=== PATIENT | male | born 1975 | race Caucasian/White ===

== ENCOUNTER 2017-07-29 07:04 | Emergency (ER) | payer BC ==
[2017-07-29] MEDS ORDERED: SODIUM CHLORIDE 0.9% 500 ML IV STA (07:20)
[2017-07-29] MEDS ORDERED: KETOROLAC 30 MG/ML 1 ML VIAL IVP STA (07:20)
[2017-07-29] MEDS ORDERED: SODIUM CHLORIDE 0.9% 1,000 ML IV STA ×3 (07:20→08:14)
[2017-07-29] MEDS ORDERED: HYDROmorphone 1 MG/ML 1 ML SYRINGE IVP STA (07:20)
[2017-07-29] MEDS ORDERED: ONDANSETRON 4 MG/2 ML VIAL IVP STA (07:20)
[2017-07-29 07:38] LABS: Basophils % (A) 1 %; CH 30.3; CHCM 34.2; Eosinophils # (A) 0.2 k/uL (0-0.7); Eosinophils % (A) 3 %; HCT 46.8 % (39.0-53.0); HDW 2.94; Luc % (Auto) 3; Lymphocytes # (A) 1.7 k/uL (1.0-4.8); Lymphocytes % (A) 26 %; MCH 30.5 pg (25.0-35.0); MCHC 34.2 g/dL (31.0-37.0); Mean Platelet Volume 7.8; Monocytes # (A) 0.4 k/uL (0-1.0); Monocytes % (A) 6 %; Neutrophils # (A) 3.9 k/uL (1.3-7.7); Neutrophils % (A) 61 %; RBC 5.25 m/uL (4.30-5.90); RDW 13.4 % (11.5-15.5); WBC 6.3 k/uL (3.8-10.6); WBC (Perox) 6.01
--- NOTE | 2017-07-29 07:51 | ED ---
General Adult HPI - General Chief complaint: Abdominal Pain Stated complaint: Back & Abd Pain Time Seen by Provider: 07/29/17 07:19 Source: patient, RN notes reviewed, old records reviewed Mode of arrival: wheelchair Limitations: no limitations - History of Present Illness Initial comments: This is a 42-year-old male to the ER for evaluation today. This patient presents for evaluation of severe flank pain severe right-sided flank pain radiating to groin burning with urination. Patient denies history of kidney stones, states he had sudden onset of pain after waking up from bed this morning. Patient still complaining of severe pain at this time. Positive nausea, mildly diaphoretic. No recent fevers no recent trauma. - Related Data Home Medications Medication Instructions Recorded Confirmed Fluticasone/Salmeterol [Advair 1 puff INHALATION RT-BID 07/29/17 07/29/17 500-50 Diskus] Liraglutide [Victoza 3-[place]] 1.8 mg SQ DAILY 07/29/17 07/29/17 Allergies Allergy/AdvReac Type Severity Reaction Status Date / Time No Known Allergies Allergy Verified 07/29/17 07:58 Review of Systems ROS Statement: Those systems with pertinent positive or pertinent negative responses have been documented in the HPI. ROS Other: All systems not noted in ROS Statement are negative. Past Medical History Past Medical History: Asthma, Diabetes Mellitus Additional Past Medical History / Comment(s): gout History of Any Multi-Drug Resistant Organisms: None Reported Past Surgical History: No Surgical Hx Reported Past Psychological History: No Psychological Hx Reported Smoking Status: Never smoker Past Alcohol Use History: None Reported Past Drug Use History: None Reported General Exam Limitations: no limitations General appearance: alert, in no apparent distress Head exam: Present: atraumatic, normocephalic, normal inspection Eye exam: Present: normal appearance, PERRL, EOMI. Absent: scleral icterus, conjunctival injection, periorbital swelling ENT exam: Present: normal exam, mucous membranes moist Neck exam: Present: normal inspection. Absent: tenderness, meningismus, lymphadenopathy Respiratory exam: Present: normal lung sounds bilaterally. Absent: respiratory distress, wheezes, rales, rhonchi, stridor Cardiovascular Exam: Present: regular rate, normal rhythm, normal heart sounds. Absent: systolic murmur, diastolic murmur, rubs, gallop, clicks GI/Abdominal exam: Present: soft, normal bowel sounds. Absent: distended, tenderness, guarding, rebound, rigid Extremities exam: Present: normal inspection, full ROM, normal capillary refill. Absent: tenderness, pedal edema, joint swelling, calf tenderness Back exam: Present: normal inspection Neurological exam: Present: alert, oriented X3, CN II-XII intact Psychiatric exam: Present: normal affect, normal mood Skin exam: Present: warm, dry, intact, normal color. Absent: rash Course Vital Signs 07/29/17 07:12 Temperature 97.5 F L Pulse Rate 561 H Respiratory 22 Rate Blood Pressure 155/77 O2 Sat by Pulse 98 Oximetry - Reevaluation(s) Reevaluation #1: 07/29/17 07:51 Pain at this point is relieved, patient resting comfortably EKG Findings - EKG Comments: EKG Findings:: EKG shows sinus bradycardia rate of 55, [place] 152, QRS 100, QTC 432 Medical Decision Making - Medical Decision Making 42 LDR for evaluation of right flank pain rating to right groin, positive kidney stone, lab work otherwise normal, patient adequately hydrated here in the emergency room, patient can be discharged home. - Lab Data Result diagrams: 07/29/17 07:27 07/29/17 07:27 Lab Results 07/29/17 07/29/17 Range/Units 07:27 07:27 WBC 6.3 (3.8-10.6) k/uL RBC 5.25 (4.30-5.90) m/uL Hgb 16.0 (13.0-17.5) gm/dL Hct 46.8 (39.0-53.0) % MCV 89.0 (80.0-100.0) fL MCH 30.5 (25.0-35.0) pg MCHC 34.2 (31.0-37.0) g/dL RDW 13.4 (11.5-15.5) % Plt Count 210 (150-450) k/uL Neutrophils % 61 % Lymphocytes % 26 % Monocytes % 6 % Eosinophils % 3 % Basophils % 1 % Neutrophils # 3.9 (1.3-7.7) k/uL Lymphocytes # 1.7 (1.0-4.8) k/uL Monocytes # 0.4 (0-1.0) k/uL Eosinophils # 0.2 (0-0.7) k/uL Basophils # 0.0 (0-0.2) k/uL Sodium 139 (137-145) mmol/L Potassium 4.5 (3.5-5.1) mmol/L Chloride 103 (98-107) mmol/L Carbon Dioxide 26 (22-30) mmol/L Anion Gap 10 mmol/L BUN 16 (9-20) mg/dL Creatinine 1.32 H (0.66-1.25) mg/dL Est GFR (MDRD) Af Amer >60 (>60 ml/min/1.73 sqM) Est GFR (MDRD) Non-Af 60 (>60 ml/min/1.73 sqM) Glucose 268 H (74-99) mg/dL Calcium 9.1 (8.4-10.2) mg/dL Total Bilirubin 0.7 (0.2-1.3) mg/dL AST 41 (17-59) U/L ALT 55 (21-72) U/L Alkaline Phosphatase 77 (38-126) U/L Total Protein 7.7 (6.3-8.2) g/dL Albumin 3.9 (3.5-5.0) g/dL Amylase 38 (30-110) U/L Lipase 168 (23-300) U/L - Radiology Data Radiology results: report reviewed (CT abdomen and pelvis is positive for kidney stone right UVJ), image reviewed Disposition Clinical Impression: Abdominal pain, Right kidney stone Disposition: HOME SELF-CARE Condition: Good Instructions: Kidney Stones (ED) Referrals: Ruth Galvan MD [Primary Care Provider] - 1-2 days
[2017-07-29 07:52] LABS: ALT 55 U/L (21-72); AST 41 U/L (17-59); Alkaline Phosphatase 77 U/L (38-126); Amylase 38 U/L (30-110); Anion Gap 10 mmol/L; Blood Urea Nitrogen 16 mg/dL (9-20); Calcium 9.1 mg/dL (8.4-10.2); Carbon Dioxide 26 mmol/L (22-30); Chloride 103 mmol/L (98-107); Glucose 268 mg/dL (74-99); Non-African American GFR(MDRD) 60 (>60 ml/min/1.73 sqM); Potassium 4.5 mmol/L (3.5-5.1); Sodium 139 mmol/L (137-145); Total Bilirubin 0.7 mg/dL (0.2-1.3); Total Protein 7.7 g/dL (6.3-8.2)
--- NOTE | 2017-07-29 08:07 | CT ---
EXAMINATION TYPE: CT abdomen pelvis wo con DATE OF EXAM: 07/29/2017 HISTORY: rt flank pain x [address] DLP: 1215 mGycm. Automated Exposure Control for Dose Reduction was Utilized. TECHNIQUE: CT scan of the abdomen and pelvis is performed without oral or IV contrast. COMPARISON: NONE FINDINGS: Within the limitations of a non-contrast study, the following observations are made. LUNG BASES: No significant abnormality is appreciated. LIVER/GB: Liver is diffusely markedly low dense consistent with fatty infiltration.1 there is nonspec ific 1.1 cm round hyperdense focus on axial image 52. PANCREAS: No significant abnormality is seen. SPLEEN: No significant abnormality is seen. ADRENALS: No significant abnormality is seen. KIDNEYS: No renal stones or hydronephrosis is evident bilaterally. There is however 2 mm calculus at right UVJ on axial image 140 not causing significant right-sided hydronephrosis. Occasional pelvic ph lebolith is seen. There is subcentimeter exophytic lesion posteriorly lower pole level right kidney o n axial image 74 too small to further characterize but presumed benign. BOWEL: Cecum is wandering into the midline of the lower abdomen near axial image 106. Terminal ileum is felt within normal limits seen best on coronal image 36. Appendix is felt within normal limits see n best on coronal image 49. No suspicious small or large bowel dilatation is present. GENITAL ORGANS: No gross abnormality seen. LYMPH NODES: No greater than 1cm abdominal or pelvic lymph nodes are appreciated. OSSEOUS STRUCTURES: Spine is straightened on sagittal images. OTHER: No significant additional abnormality is seen. IMPRESSION: There is 2 mm calculus at right UVJ not causing significant right-sided hydronephrosis
[2017-07-29] MEDS ORDERED: HYDROmorphone 0.5 MG/0.5 ML SYRINGE IVP STA (08:16)
[2017-07-29 08:37] LABS: Appearance,Urine Clear (Clear); Bilirubin,Urine Negative (Negative); Glucose,Urine (UA) 3+ (Negative); Ketones,Urine Trace (Negative); Leukocyte Esterase,Urine Negative (Negative); Nitrite,Urine Negative (Negative); Protein,Urine Trace (Negative); Specific Gravity,Urine 1.024 (1.001-1.035); UA Billing (MACRO vs. MICRO) CHEM; Urobilinogen,Urine <2.0 mg/dL (<2.0)
[2017-07-29 09:32] VITALS: BP 130/74; PULSE 74; RESP 18; TEMP 98
== END 2017-07-29 09:33 | disposition home or self-care (01) ==
LOC: EC 07:04
DX: N20.2 Calculus of kidney with calculus of ureter (principal); R00.1 Bradycardia, unspecified; J45.909 Unspecified asthma, uncomplicated; E11.9 Type 2 diabetes mellitus without complications; Z79.4 Long term (current) use of insulin; Z79.51 Long term (current) use of inhaled steroids
CPT/HCPCS: 99285 ×2; 96374 ×2; 96375 ×3; 96376 ×2; 96361 ×3; 36415; 93005; 80053; 82150; 83690; 85025; 81003; 87086; 74176; J2405; J1885; J1170 ×2

== ENCOUNTER 2020-07-06 11:44 | Emergency (ER) | payer BC ==
--- NOTE | 2020-07-06 12:23 | ED ---
General Adult HPI - General Source: patient, RN notes reviewed, old records reviewed Mode of arrival: ambulatory Limitations: no limitations <Guanako Agrawal - Last Filed: 07/06/20 13:41> <Bernabe Raygoza - Last Filed: 07/06/20 13:48> - General Chief complaint: Headache Stated complaint: Headache Time Seen by Provider: 07/06/20 11:54 - History of Present Illness Initial comments: 45-year-old male patient presents to ED for evaluation of headaches patient reports that he has been having daily headaches for the last month. Reports left lobe of his brain. Denies any loss of consciousness. Denies any other acute complaints. Systemic: Pt denies fatigue, fever/chills, rash. Pt denies weakness, night sweats, weight loss. Neuro: Pt denies visual disturbances, syncope or pre-syncope. HEENT: Pt denies ocular discharge or irritation, otalgia, rhinorrhea, pharyngitis or notable lymphadenopathy. Cardiopulmonary: Pt denies chest pain, SOB, heart palpitations, dyspnea on exertion. Abdominal/GI: Pt denies abdominal pain, n/v/d. : Pt denies dysuria, burning w/ urination, frequency/urgency. Denies new onset urinary or bowel incontinence. MSK: Pt denies myalgia, loss of strength or function in extremities. Neuro: Pt denies new onset weakness, paresthesias. (Guanako Agrawal) - Related Data Home Medications Medication Instructions Recorded Confirmed Fluticasone/Salmeterol [Advair 1 puff INHALATION RT-DAILY 07/29/17 07/06/20 500-50 Diskus] Semaglutide [Ozempic] 0.5 mg SQ SA 07/06/20 07/06/20 Allergies Allergy/AdvReac Type Severity Reaction Status Date / Time No Known Allergies Allergy Verified 07/06/20 12:20 Review of Systems ROS Other: All systems not noted in ROS Statement are negative. <Guanako Agrawal - Last Filed: 07/06/20 13:41> ROS Other: All systems not noted in ROS Statement are negative. <Bernabe Raygoza - Last Filed: 07/06/20 13:48> ROS Statement: Those systems with pertinent positive or pertinent negative responses have been documented in the HPI. Past Medical History Past Medical History: Asthma, Diabetes Mellitus Additional Past Medical History / Comment(s): gout History of Any Multi-Drug Resistant Organisms: None Reported Past Surgical History: No Surgical Hx Reported Past Psychological History: No Psychological Hx Reported Smoking Status: Never smoker Past Alcohol Use History: None Reported Past Drug Use History: None Reported <Guanako Agrawal - Last Filed: 07/06/20 13:41> General Exam Limitations: no limitations <Guanako Agrawal - Last Filed: 07/06/20 13:41> - General Exam Comments Initial Comments: Constitutional: NAD, AOX3, Pt has pleasant affect. HEENT: NC/AT, trachea midline, neck supple, no lymphadenopathy. External ears appear normal, without discharge. Mucous membranes moist. Eyes PERRLA, EOM intact. There is no scleral icterus. No pallor noted. Cardiopulmonary: RRR, no murmurs, rubs or gallops, no JVD noted. Lungs CTAB in anterior and posterior coelho. No peripheral edema. Abdominal exam: Abdomen soft and non-distended. Abdomen non-tender to palpation in all 4 quadrants. Bowel sounds active in LLQ. No hepatosplenomegaly. No ecchymosis Neuro: CN II-XII intact. No nuchal rigidity. No raccon eyes, no downey sign, no hemotympanum. No cervical spinal tenderness. MSK: Full active ROM in upper and lower extremities, 5/5 stregnth. (Guanako Agrawal) Course <Bernabe Raygoza - Last Filed: 07/06/20 13:48> Vital Signs 07/06/20 11:51 Temperature 98.1 F Pulse Rate 78 Respiratory 17 Rate Blood Pressure 122/87 O2 Sat by Pulse 98 Oximetry - Reevaluation(s) Reevaluation #1: 07/06/20 13:47 PA supervision: I proceeded [id number] evaluation the patient. He did present with complaints of headache going up for approximately a month also some facial pain. He denied any nausea vomiting blurry vision loss of function is upper or lower extremities. No prior episodes of this type of activity. In the workup a CAT scan the brain was performed without contrast did show evidence of a frontal lobe lesion on the left. There is some evidence of vasogenic edema and mass effect. I did discuss this with the patient's family was present. Patient will be transferred to [facility] further evaluation workup regarding neurosurgery. (Bernabe Raygoza) Medical Decision Making <Guanako Agrawal - Last Filed: 07/06/20 13:41> - Medical Decision Making 45-year-old male patient with see for evaluation of daily headaches. Patient vital signs are stable, afebrile. Physical exam slit intact neurologic exam. CT brain without contrast displayed no 4 x 4 centimeter left frontal lobe mass. There is some vasogenic edema and 3 mm of midline shift. Patient administered Decadron emergency department. Will be transferred to [facility] for neurosurgical evaluation. Dr. Douglas neurosurgeon at [facility] accepts case but does request transfer to [facility] where he has rights, due to different surgical capabilities. Case discussed and pt seen by Dr. Raygoza. (Guanako Agrawal) Disposition Is patient prescribed a controlled substance at d/c from ED?: No - Out of Hospital Transfer - Req. Specs Out of Hospital Transfer - Requested Specifics: Other Emergency Center ([facility] - neurosurgery) <Guanako Agrawal - Last Filed: 07/06/20 13:41> <Bernabe Raygoza - Last Filed: 07/06/20 13:48> Clinical Impression: Brain mass Disposition: OTHER INSTITUTION NOT DEFINED Condition: Serious Referrals: Ruth Galvan MD [Primary Care Provider] - 1-2 days
--- NOTE | 2020-07-06 12:35 | CT ---
EXAMINATION TYPE: CT brain wo con DATE OF EXAM: 07/06/2020 COMPARISON: None HISTORY: headache CT DLP: 1058.[address] of the brain was performed. There is a left frontal mass measuring approximately 4.9 x 4.8 cm with mild mass effect upon the left frontal horn. There is mild [id number] midline shift of 3 mm. No evidence for herniation. Suspec t underlying glioma. Surrounding vasogenic edema noted. No additional masses seen. There is no evidence for intracranial hemorrhage. Osseous calvarium is intact. If symptoms persist consider MRI as clinically warranted. IMPRESSION: 1. There is a left frontal mass measuring approximately 4.9 x 4.8 cm with mild mass effect upon the left frontal horn. There is mild [id number] midline shift of 3 mm. No evidence for herniation. León spect underlying glioma. MRI recommended
[2020-07-06] MEDS ORDERED: MORPHINE SULFATE 4 MG/ML SYRINGE IV STA (12:44)
[2020-07-06] MEDS ORDERED: DEXAMETHASONE SOD PHOSPHATE 10 MG/ML 1 ML VIAL IV STA (12:57)
[2020-07-06] MEDS ORDERED: ONDANSETRON 4 MG/2 ML VIAL IVP STA (13:28)
[2020-07-06 14:21] VITALS: BP 126/80; PULSE 80; RESP 18; TEMP 97.9
== END 2020-07-06 14:21 | disposition other institution (70) ==
LOC: EC 11:44
DX: G93.9 Disorder of brain, unspecified (principal); J45.909 Unspecified asthma, uncomplicated; E11.9 Type 2 diabetes mellitus without complications; Z79.51 Long term (current) use of inhaled steroids
CPT/HCPCS: 70450; 99285; 96374; 96375 ×2; J2270; J1100; J2405